=== PATIENT | female | born 1980 | race Caucasian/White ===

== ENCOUNTER 2016-05-31 12:00 | Outpatient (CLI) | payer OTHER | END 2016-05-31 12:01 | disposition home or self-care (01) | LOC: NC 12:00 | PROVIDERS: ATTEND Nurse Practitioner Family | DX: E66.9 Obesity, unspecified (principal); Z71.3 Dietary counseling and surveillance; Z68.43 Body mass index [BMI] 50.0-59.9, adult ==

== ENCOUNTER 2016-06-14 09:59 | Outpatient (CLI) | payer OTHER | END 2016-06-14 10:00 | disposition home or self-care (01) | LOC: NC 09:59 | PROVIDERS: ATTEND Nurse Practitioner Family | DX: E66.9 Obesity, unspecified (principal); Z71.3 Dietary counseling and surveillance ==

== ENCOUNTER 2016-07-12 14:09 | Outpatient (CLI) | payer OTHER | END 2016-07-12 14:10 | disposition home or self-care (01) | LOC: NC 14:09 | PROVIDERS: ATTEND Nurse Practitioner Family | DX: E66.9 Obesity, unspecified (principal); Z71.3 Dietary counseling and surveillance ==

== ENCOUNTER 2016-08-02 13:25 | Outpatient (CLI) | payer OTHER | END 2016-08-02 13:26 | disposition home or self-care (01) | LOC: NC 13:25 | PROVIDERS: ATTEND Nurse Practitioner Family | DX: E66.9 Obesity, unspecified (principal); Z71.3 Dietary counseling and surveillance; F90.9 Attention-deficit hyperactivity disorder, unspecified type; Z68.38 Body mass index [BMI] 38.0-38.9, adult ==